=== PATIENT | male | born 1985 | race Caucasian/White ===

== ENCOUNTER 2020-11-15 16:04 | Emergency (ER) | payer BC, SELFPAY ==
[2020-11-15 16:05] VITALS: BP 137/75; PULSE 83; RESP 16; TEMP 36.6; O2SAT 100; BMI 25.8
--- NOTE | 2020-11-15 16:16 | XR_ITS ---
PROCEDURE: XR FEMUR LT 2V CLINICAL INDICATION: laceration to left thigh COMPARISON: No exams were available for comparison FINDINGS: No fracture or dislocation. No lytic or blastic change. There is normal mineralization. The joint spaces are well-preserved. No significant degenerative/arthritic changes. No erosive changes evident. Other findings:Bandage artifact is present overlying the anterior distal aspect of the thigh soft tissues. No metallic foreign bodies apparent IMPRESSION: Status post laceration to the anterior distal thigh with bandage artifact otherwise negative Dictated by: Jamal Santa MD 11/15/2020 16:32 Jamal Santa MD in [place] 11/15/2020 16:32
--- NOTE | 2020-11-15 16:27 | PC.NURSE ---
pt was cutting some wood and his chainsaw jumped back and hit his left leg above the knee putting a jagged cut on him, cleaned pts cut with hibaclens and water for dr to exam the wound. cover the wound with 4x4's soaked in water and hibaclens
[2020-11-15 16:30] VITALS: BP 142/79; PULSE 70; O2SAT 98
[2020-11-15 17:00] VITALS: BP 130/75; PULSE 72; O2SAT 98
--- NOTE | 2020-11-15 17:22 | [facility].EDGENADL ---
ED Disposition Clinical Impression: Laceration of left thigh Qualifiers: Encounter type: initial encounter Qualified Code(s): S71.112A - Laceration without foreign body, left thigh, initial encounter Disposition: Home, Self-Care Condition on Discharge: Good Instructions: DI for Laceration Repair, How to Use Crutches Additional Instructions: Crutches for 4 to 5 days. Clean wound daily with soap and water and rebandage. Wound check by primary care provider or urgent treatment center in 2 days. Keflex as prescribed. Ibuprofen for pain. Additional instructions for LACERATION: Clean the wound daily with soap and water. You may shower. Apply a thin film of antibiotic ointment such as neosporin or triple antibiotic after showering and apply a bandage. Avoid submerging the wound, no swimming. See your primary care physician or return to the Urgent [facility] in 10 days for suture removal. The [facility]gent [facility] is open 9AM to 9 PM, 7 days a week. Return if any signs of infection including increasing pain, pus drainage, swelling, redness, red streaks, or fever. Prescriptions: cephALEXin [cephALEXin 500mg capsule*] 500 mg PO Q6H #28 cap Transmission Status: Pending to [id number] Referrals: Provider,Referral, [Primary Care Provider] - - Critical Care Critical Care Time: No Attestation: On 11/15/20, the high probability of a clinically significant, sudden or life threatening deterioration of the following system(s) required my full and direct attention, intervention and personal management. The time I documented below is in addition to time spent performing reported procedures but includes the following listed in this critical care notation. Medical Decision Making - Travis Inquiry Pt receiving controlled substance: No Vital Signs: 11/15/20 16:05 11/15/20 16:30 11/15/20 17:00 Temperature 97.9 F Temperature Source Oral Pulse Rate 70 72 Pulse Rate [Right] 83 Respiratory Rate 16 Blood Pressure 142/79 H 130/75 Blood Pressure [Right Arm] 137/75 Blood Pressure Mean 99 93 Blood Pressure Mean [Right Arm] 95 Blood Pressure Source Blood Pressure Position 02 Sat by Pulse Oximetry 100 98 98 Oxygen Delivery Method Room Air 11/15/20 17:30 11/15/20 18:57 11/15/20 18:58 Temperature 98.4 F Temperature Source Oral Pulse Rate 66 65 Pulse Rate [Right] Respiratory Rate 16 Blood Pressure 140/81 130/78 Blood Pressure [Right Arm] Blood Pressure Mean 92 Blood Pressure Mean [Right Arm] Blood Pressure Source Automatic Cuff Blood Pressure Position Sitting 02 Sat by Pulse Oximetry 99 Oxygen Delivery Method Room Air Room Air Orders (Tests/Meds): ED MEDICATIONS Discontinued Medications Generic Name Dose Route Start Last Admin Trade Name Kathleen PRN Reason Stop Dose Admin Cephalexin HCl 500 mg 11/15/20 17:33 11/15/20 17:38 Cephalexin 500mg Capsule PO 11/15/20 17:34 500 mg ONCE ONE Administration Protocol Lidocaine/Epinephrine 20 ml 11/15/20 17:32 11/15/20 18:21 Lidocaine 1% W/Epi 1:100,000 20ml Vial SQ 11/15/20 17:33 20 ml ONCE ONE Administration Lidocaine/Epinephrine 20 ml 11/15/20 17:32 11/15/20 18:22 Lidocaine 1% W/Epi 1:100,000 20ml Vial SQ 11/15/20 17:33 20 ml ONCE ONE Administration - Radiology Data #1 Image(s): Femur Image Reviewed: Yes I reviewed the patient's radiology image, Yes I have reviewed radiologist's interpretation PROCEDURE: XR FEMUR LT 2V CLINICAL INDICATION: laceration to left thigh COMPARISON: No exams were available for comparison FINDINGS: No fracture or dislocation. No lytic or blastic change. There is normal mineralization. The joint spaces are well-preserved. No significant degenerative/arthritic changes. No erosive changes evident. Other findings:Bandage artifact is present overlying the anterior distal aspect of the thigh soft tissues. No metal
[2020-11-15 17:30] VITALS: BP 140/81; PULSE 66; O2SAT 99
--- NOTE | 2020-11-15 17:45 | PC.NURSE ---
AT BEDSIDE FOR LACERATION REPAIR AT THIS TIME
--- NOTE | 2020-11-15 18:46 | PC.NURSE ---
MD still remains at bedside with patient doing laceration repair
[2020-11-15 18:58] VITALS: BP 130/78; PULSE 65; RESP 16; TEMP 36.9; O2SAT 99
== END 2020-11-15 19:59 | disposition home or self-care (01) ==
PROVIDERS: Emergency Provider Emergency Medicine
DX: S71.112A Laceration without foreign body, left thigh, initial encounter (principal); W31.2XXA Contact with powered woodworking and forming machines, initial encounter; Y92.89 Other specified places as the place of occurrence of the external cause; F17.210 Nicotine dependence, cigarettes, uncomplicated
CPT/HCPCS: 12035; 73552; 96372; 99282